=== PATIENT | female | born 1980 | race Caucasian/White ===

== ENCOUNTER 2022-02-21 19:06 | Emergency (ER) | payer MEDICAID ==
[~2022-02-21] VITALS: Ht 177.8 cm; Wt 72.7 kg
[2022-02-21 19:35] VITALS: BP 118/64
[2022-02-21] MEDS ORDERED: ketorolac trometh. 30mg/ml inj. IM ONE (21:05)
== END 2022-02-21 22:37 | disposition home or self-care (01) ==
LOC: ER 19:08
DX: M54.41 Lumbago with sciatica, right side (principal); R53.1 Weakness
CPT/HCPCS: 72100; 73521; 96372; 99284; J1885